=== PATIENT | male | born 1955 | race African-American/Black ===

== ENCOUNTER → 2020-07-08 | Outpatient (CLI) | payer OTHER ==
[~2020-07-08] MED LIST: ASPIRIN EC81 M1 PO; ASPIRIN325 PO; ATORVASTATIN CA40 MG PO; B COMPLEX WITH1 EACH PO; BYSTOLIC 5 MG5 M1 PO; COLACE100 MG PO; MULTIVITAMINS PO; NITROGLYCERIN0.4 MG SL; PLAVIX 75 MG TA75 M1 PO; PLAVIX 75 MG TA75 MG PO; PRAVACHOL40 MG PO; ZETIA10 MG PO
== END ==
LOC: SJCVC 13:18
PROVIDERS: ATTEND Internal Medicine Cardiovascular Disease
DX: R94.31 Abnormal electrocardiogram [ECG] [EKG] (principal); I11.9 Hypertensive heart disease without heart failure; I25.2 Old myocardial infarction; I25.10 Atherosclerotic heart disease of native coronary artery without angina pectoris; E78.00 Pure hypercholesterolemia, unspecified; I73.9 Peripheral vascular disease, unspecified; M79.605 Pain in left leg; I77.1 Stricture of artery; R07.9 Chest pain, unspecified; R01.1 Cardiac murmur, unspecified; Z87.891 Personal history of nicotine dependence; Z72.89 Other problems related to lifestyle; Z79.82 Long term (current) use of aspirin; Z79.899 Other long term (current) drug therapy

== ENCOUNTER → 2020-08-20 | Outpatient (CLI) | payer OTHER | LOC: SJCVCIMAG 07:25 | PROVIDERS: ATTEND Nuclear Medicine Nuclear Cardiology | DX: I08.2 Rheumatic disorders of both aortic and tricuspid valves (principal); I27.20 Pulmonary hypertension, unspecified; I70.203 Unspecified atherosclerosis of native arteries of extremities, bilateral legs; I77.1 Stricture of artery; I25.10 Atherosclerotic heart disease of native coronary artery without angina pectoris; F17.200 Nicotine dependence, unspecified, uncomplicated; Z95.828 Presence of other vascular implants and grafts ==

== ENCOUNTER → 2020-09-03 | Outpatient (CLI) | payer OTHER | LOC: SJCVCIMAG 07:17 | PROVIDERS: ATTEND Internal Medicine Cardiovascular Disease | DX: I25.10 Atherosclerotic heart disease of native coronary artery without angina pectoris (principal); E78.5 Hyperlipidemia, unspecified; F17.200 Nicotine dependence, unspecified, uncomplicated; Z79.82 Long term (current) use of aspirin; Z79.899 Other long term (current) drug therapy ==

== ENCOUNTER 2020-09-06 06:34 | Observation (INO) | payer OTHER ==
[~2020-09-06] VITALS: Ht 188 cm; Wt 84.8 kg
[2020-09-06] VITALS (9 sets, daily range): BP systolic 135–164; BP diastolic 72–91
[2020-09-06] MEDS ORDERED: CRESTOR40 MG PO (07:28)
[2020-09-06] MEDS ORDERED: IMDUR 30 MG TAB30 M1 PO (07:31)
[2020-09-06 07:53] LABS: HEMATOCRIT 34.1 % (42.0-52.0); HEMOGLOBIN 11.5 gm/dL (14.0-18.0); MCH 30.6 pg (26.0-34.0); MCHC 33.7 g/dL (28.0-37.0); MCV 90.7 fL (80.0-100.0); RBC 3.76 mil/uL (4.50-6.00); RDW 13.8 % (10.5-14.5); WBC 3.9 thou/uL (4.0-11.0)
[2020-09-06 08:01] LABS: CALCIUM 9.5 mg/dL (8.5-10.1); POTASSIUM 4.5 mmol/L (3.5-5.1)
[2020-09-06] MEDS ORDERED: EFFIENT10 MG PO (13:24)
--- NOTE | 2020-09-06 17:01 | CATHLAB ---
[facility] [address] INVASIVE PROCEDURE REPORT Name: LM ZHOU Room #: 217-P [facility] M.RMichi#: [id number] Admission: 09/06/20 Attend Phys: Kevin Marquez MD Discharge: Date of : 53 Report #: [id number] THIS REPORT FOR: cc: Lm Sanchez MD, Michael B. MD Mancuso, Gerald M. MD [facility] ~ APPROVED REPORT Study performed: 09/06/2020 10:02:30 Patient Details Patient Status: Out-Patient Room #: The patient is a 65 year-old male Event Personnel Jose Keating Dry Cell Sealer, Leni Nichols RN RN, Rosaura Lofton RT(R)() Jesus Garcia Sherra RTR Monitor Procedures Performed Left Heart Cath w/or w/o Coronaries [id number] [facility] CAPO Place w/wo Plasty Single RCA 642911 21873 Initial Mod Sed Same Phys/QHP Gr5y 780673 12099 Mod Sed Same Phys/QHP Ea 871829 Hemostasis with Manual pressure Indication Chest pain Procedure Narrative The was infiltrated with 1% Lidocaine subcutaneous anesthesia. A SHEATH DESTINATION 6F X 45CM ([id number]) sheath was inserted into the RFA^. Coronary angiography was performed using coronary diagnostic catheters. The right coronary system was accessed and visualized with a JR4 catheter. The left coronary system was accessed and visualized with a JL4 catheter. The left ventricle was accessed and visualized with a PIGTAIL catheter. Left ventriculogram was performed in 30 degree projection. Hemostasis was obtained with manual pressure following sheath removal without any complications. The patient tolerated the procedure well and there were no complications associated with the procedure. There was no hematoma. Intraoperative Conscious Sedation Sedation start time: 8:49 Case end Time: 12:00 Fentanyl 100 mcg Versed 1.0 mg [facility] [place] [address] INVASIVE PROCEDURE REPORT Name: LM ZHOU Room #: 217-P [facility] IN ..#: [id number] Admission: 09/06/20 Attend Phys: Kevin Marquez, Discharge: Date of : 53 Report #: [id number] SEDATION TIMES/AMOUNTS, FLUORO DOSES/TIMES,AND CONTRAST TOTALS ARE ALL FROM A COMBO CASE WITH DR MARQUEZ Fluoro Time: 17.93 minutes Dose: DAP 00737.00 cGycm2 2104 mGy Contrast Type and Amount: Visipaque 328 ml Hemodynamics The aortic pressure is 155/80 mmHg with a mean of 106 mmHg. The left ventricular pressure is 153/10 mmHg with a mean of mmHg. The left ventricular end diastolic pressure is 21 mmHg. PCI Technique Lesion Percutaneous coronary intervention was performed on the Superficial Femoralmid right coronary artery. A LAUNCHER 6FR JR 4 #[id number] Guide Catheter was used to engage the ostium. A Luge Wire .014 x 182CM #[id number] Interventional Guidewire was used to cross the lesion. BALLOON DILATION A Balloon catheter Sprinter OTW 2.25 x 15 #[id number] was inserted and inflated up to 10.00atm for 16seconds. Additional Inflation: 12atm for 19seconds. Additional Inflation: 12atm for 18seconds. STENT DEPLOYMENT A drug-eluting stent RESOLUTE HILARY OTW 2.5 X 34 #[id number] was inserted and inflated up to 10atm for 21seconds. Additional Inflation: 14atm for 22seconds. AN ADDITIONAL RESOLUTE HILARY STENT WAS PLACED AND THE INFLATIONS WERE 10 ATMS FOR 23 SEC/MINS,14 ATMS FOR 18 SECS/MINS AND 16 ATMS FOR 18 SECS/MINS PCI Technique Lesion 2 Percutaneous Coronary Intervention was performed on the mid right coronary artery. Conclusion #1. Successful PTCA stent of tandem proximal and mid dominant RCA stenoses of 98 and 90%. Treated with a 2.5 x 34 [place] stent and then proximal to for limited dissection a 2.5 x 12 Findlay stent all postdilated 2.7 mm VANNA grade III flow moderate disease distally anatomically dominant vessel. #2 left main mildly disease giving rise to LAD and circumflex. #3 the LAD extends around the apex proximal calcification with mild irregularities. No occlusive disease. #4 circumflex OM nondominant first OM mildly diseased no occlusive disease second OM is large with a 50% proximal stenosis and a smaller [facility] [address] [place] [address] INVASIVE PROCEDURE REPORT Name: LM ZHOU Room #: 217-P [facility] IN ..#: [id number] Admission: 09/06/20 Attend Phys: Kevin Marquez, Discharge: Date of : 53 Report #: [id number] circumflex in the AV groove no indication for intervention. #5 normal left ventricular size and systolic function EF 60%. Recommendations and plan: Continue aggressive risk factor modification. Dual antiplatelet therapy has been initiated. Patient to follow post coronary stent protocol CCU transfer stable condition. <ELECTRONICALLY SIGNED> By: Jose Keating MD, FACC 09/06/201699 99 99 Jose Ketaing MD, FACC /INF
--- NOTE | 2020-09-06 20:07 | NUR ---
PT CARE ASSUMED AT 1515. ASSESSMENTS CHARTED. MEDICATIONS CHARTED. RAC IV. NORMAL SINUS RHYTHM. URINAL. CARDIAC CATH; LT SSA BALLOON, NO STENT; RCA 2 STENTS; RT GROIN, NO CLOSURE; HEMOSTASIS AT 1420, BEDREST UNTIL 2019.
[2020-09-07 04:45] VITALS: BP 118/64; BP 147/71
[2020-09-07 05:03] LABS: ALBUMIN 3.5 g/dL (3.4-5.0); CALCIUM 8.7 mg/dL (8.5-10.1); POTASSIUM 3.8 mmol/L (3.5-5.1); TOTAL BILIRUBIN 0.3 mg/dL (0.2-1.0); TOTAL PROTEIN 6.6 g/dL (6.4-8.2); TROPONIN-I 0.12 ng/mL (<0.06)
[2020-09-07 05:07] LABS: HEMATOCRIT 29.8 % (42.0-52.0); HEMOGLOBIN 10.1 gm/dL (14.0-18.0); MCH 30.7 pg (26.0-34.0); MCV 90.2 fL (80.0-100.0); RBC 3.3 mil/uL (4.50-6.00); RDW 13.7 % (10.5-14.5); WBC 9.8 thou/uL (4.0-11.0)
[2020-09-07 08:50] VITALS: BP 140/72
[2020-09-07 11:23] VITALS: BP 140/72
--- NOTE | 2020-09-08 11:27 | EKG ---
[address] [address] ELECTROCARDIOGRAM REPORT Name: ABBIE ZHOU Room #: 217-[facility]#: [id number] Admission: 09/06/20 Attend Phys: Kevin Russell MD Discharge: 09/07/20 Date of : 53 Report #: [id number] 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
== END 2020-09-07 11:54 | disposition home or self-care (01) ==
LOC: CATH 06:34 → 2N 15:14
PROVIDERS: Nurse Practitioner Adult Health; ADMIT Nuclear Medicine Nuclear Cardiology; ATTEND Nuclear Medicine Nuclear Cardiology
DX: I25.10 Atherosclerotic heart disease of native coronary artery without angina pectoris (principal); I10 Essential (primary) hypertension; E78.5 Hyperlipidemia, unspecified; I70.213 Atherosclerosis of native arteries of extremities with intermittent claudication, bilateral legs; I70.1 Atherosclerosis of renal artery; I65.29 Occlusion and stenosis of unspecified carotid artery; Z79.82 Long term (current) use of aspirin; Z79.899 Other long term (current) drug therapy

== ENCOUNTER → 2020-12-02 | Outpatient (CLI) | payer OTHER ==
[~2020-12-02] MED LIST changes: +CRESTOR40 MG PO; +EFFIENT10 MG PO; +IMDUR 30 MG TAB30 M1 PO
== END ==
LOC: SJCVCIMAG 08:00
PROVIDERS: ATTEND Internal Medicine Cardiovascular Disease
DX: I65.23 Occlusion and stenosis of bilateral carotid arteries (principal); I70.203 Unspecified atherosclerosis of native arteries of extremities, bilateral legs; E78.5 Hyperlipidemia, unspecified; E78.00 Pure hypercholesterolemia, unspecified; F17.200 Nicotine dependence, unspecified, uncomplicated; Z95.820 Peripheral vascular angioplasty status with implants and grafts; Z79.82 Long term (current) use of aspirin; Z79.899 Other long term (current) drug therapy

== ENCOUNTER 2021-03-22 17:08 | Inpatient (IN) | payer OTHER ==
[~2021-03-22] VITALS: Ht 188 cm; Wt 80.3 kg
[2021-03-22 17:09] VITALS: BP 144/78
[2021-03-22 17:28] LABS: ABSOLUTE NEUTROPHILS 2.5 thou/uL (1.4-8.2); BASOPHILS 0.9 % (0.0-2.0); EOSINOPHILS 2.9 % (0.0-3.0); HEMATOCRIT 30.5 % (42.0-52.0); HEMOGLOBIN 10.4 gm/dL (14.0-18.0); LYMPHOCYTES 27.5 % (24.0-44.0); MCH 31.5 pg (26.0-34.0); MCHC 34.1 g/dL (28.0-37.0); MCV 92.3 fL (80.0-100.0); MONOCYTES 10.1 % (1.0-8.0); PLATELET COUNT 176 thou/uL (150-400); POLYS 58.6 % (36.0-66.0); RBC 3.31 mil/uL (4.50-6.00); RDW 13.8 % (10.5-14.5); WBC 4.3 thou/uL (4.0-11.0)
[2021-03-22 17:33] LABS: CALCIUM 8.6 mg/dL (8.5-10.1)
--- NOTE | 2021-03-22 21:00 | NUR ---
PT HERE FOR HEART PALPATATIONS HISTORY OF STENT REPLACEMENT. SOME NAUSE HE REPORTED AND ALMOST PASSED OUT. CAME TO HOSPITAL. [facility]. ALERT AND ORIENTED X4. LUNGS ARE CLEAR ON ROOM AIR. DENIES ANY PAIN OR CHEST PAIN.PLAN OF CARE DISSCUSED WITH PT NPO AT THIS TIME. WILL CALL CARDIOLOGY CONSULT IN FOR PT IN AM. CALL LIGHT WITHIN REACH IF NEEDS ASSISTANCE PER STAFF
[2021-03-22 21:06] LABS: CHOLESTEROL 111 mg/dL (<200); HDL CHOLESTEROL 35 mg/dL (>40); LDL CHOLESTEROL 47 mg/dL (<100); TC:HDL 3.2 Ratio (Not establshd); TRIGLYCERIDE 146 mg/dL (<150); VLDL 29 mg/dL (<40)
[2021-03-22] MEDS ORDERED: METOPROLOL SUCC50 MG PO (22:59)
[2021-03-22 23:16] VITALS: BP 130/66
[2021-03-23 00:05] VITALS: BP 177/88
[2021-03-23 04:45] VITALS: BP 130/78
[2021-03-23 05:09] LABS: CALCIUM 8.5 mg/dL (8.5-10.1); CREATININE 0.9 mg/dL (0.7-1.3); POTASSIUM 3.6 mmol/L (3.5-5.1)
[2021-03-23 08:49] VITALS: BP 149/72
[2021-03-23 11:07] VITALS: BP 149/72
--- NOTE | 2021-03-23 11:42 | NUR ---
PT DISCHARGED HOME @ 1132. PT IS GIVEN ALL DISCHARGE AND FOLLOW UP INSTRUCTIONS. PT IS STABLE AT TIME OF DISCHARGE. IV IS REMOVED AND TELE MONITOR D/C'D. PT AMBULATED OFF OF UNIT ACCOMPANIED BY STAFF.
--- NOTE | 2021-03-23 13:46 | EKG ---
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 03/23/21 1346 0953 09 Claudio Garnett MD, FACC /EPI
--- NOTE | 2021-03-24 07:18 | EKG ---
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
== END 2021-03-23 12:31 | disposition home or self-care (01) | DRG 310 ==
LOC: ER 17:08 → EROBS 19:59 → 2N 23:27
PROVIDERS: Emergency Medicine; Nurse Practitioner Family; ADMIT Internal Medicine; ATTEND Internal Medicine
DX: I49.9 Cardiac arrhythmia, unspecified (principal); I25.10 Atherosclerotic heart disease of native coronary artery without angina pectoris; I10 Essential (primary) hypertension; E78.5 Hyperlipidemia, unspecified; I73.9 Peripheral vascular disease, unspecified; Z20.822 Contact with and (suspected) exposure to COVID-19; E78.00 Pure hypercholesterolemia, unspecified; F17.210 Nicotine dependence, cigarettes, uncomplicated; I65.23 Occlusion and stenosis of bilateral carotid arteries; Z95.5 Presence of coronary angioplasty implant and graft; Z91.041 Radiographic dye allergy status; Z91.013 Allergy to seafood; Z95.820 Peripheral vascular angioplasty status with implants and grafts; Z71.6 Tobacco abuse counseling; Z79.82 Long term (current) use of aspirin; Z79.899 Other long term (current) drug therapy
CPT/HCPCS: 10081

== ENCOUNTER → 2021-03-25 | Outpatient (CLI) | payer OTHER ==
[~2021-03-25] MED LIST changes: +METOPROLOL SUCC50 MG PO
== END ==
LOC: SJCVCIMAG 06:33
PROVIDERS: ATTEND Internal Medicine Cardiovascular Disease
DX: I25.10 Atherosclerotic heart disease of native coronary artery without angina pectoris (principal); I73.9 Peripheral vascular disease, unspecified; I77.9 Disorder of arteries and arterioles, unspecified